=== PATIENT | female | born 1975 | race Caucasian/White ===

== ENCOUNTER 2018-06-26 22:30 | Emergency (ER) | payer OTHER, MEDICAID ==
[~2018-06-26] VITALS: Ht 175.3 cm; Wt 78.9 kg
[2018-06-26 22:38] VITALS: Ht 175.3 cm; Wt 78.9 kg
[2018-06-27 07:06] VITALS: BP 105/64
== END 2018-06-27 07:06 | disposition home or self-care (01) ==
LOC: ED 22:30
DX: G89.29 Other chronic pain (principal); M79.661 Pain in right lower leg; M54.9 Dorsalgia, unspecified; Z59.0 Homelessness; J45.909 Unspecified asthma, uncomplicated; Z91.013 Allergy to seafood
CPT/HCPCS: J1885